=== PATIENT | female | born 1975 | race Caucasian/White ===

== ENCOUNTER 2021-05-23 17:33 | Emergency (ER) | payer BC, OTHER ==
[~2021-05-23] VITALS: Ht 157.5 cm; Wt 74.8 kg
--- NOTE | 2021-05-23 17:35 | NUR ---
Patient to ER bed 05 to gown for evaluation. Side rails up.
--- NOTE | 2021-05-23 17:40 | NUR ---
Pt to bed #5 coming from home ambulatory with steady gait. A&Ox4. Skin intact. Pt c/o right wrist pain. Pt states she fell while ice skating and landed on her right wrist. Pt rates pain 8/10 non-radiating. Swelling noted on right wrist. Did not hit head. No chest pain and no sob. Denies n/v. VSS. NKA. No known medical conditions. Bed in lowest position.
[2021-05-23 17:41] VITALS: BP_SYST 139
--- NOTE | 2021-05-23 17:45 | NUR ---
ER at bedside examining patient.
--- NOTE | 2021-05-23 18:21 | NUR ---
X-Ray being done at bedside.
[2021-05-23] MEDS ORDERED: HYDR-3917 PO (18:40)
[2021-05-23] MEDS ORDERED: IBUP-1969 PO (18:40)
[2021-05-23 19:00] VITALS: BP_SYST 124
[2021-05-23] MEDS ORDERED: IBUPROFEN 800 MG TABLET PO ONE (19:00)
[2021-05-23] MEDS ORDERED: MORPHINE 4 MG INJ. 4 MG/ML VIAL IM ONE (19:00)
[2021-05-23] MEDS ORDERED: HYDROcodone/ACETAMIN 5-325 MG TAB (NORCO/ VICODIN) PO ONE (19:00)
--- NOTE | 2021-05-23 19:01 | NUR ---
Patient given written and verbal discharge instructions and verbalizes understanding. ER MD discussed with patient the results and treatment provided. Patient in stable condition. ID arm band removed. Rx of [place] & Ibuprofen given. Patient educated on pain management and to follow up with PMD. Pain Scale . Opportunity for questions provided and answered. Medication side effect fact sheet provided.
== END 2021-05-23 19:01 | disposition home or self-care (01) ==
LOC: SED 17:33
DX: S52.501A Unspecified fracture of the lower end of right radius, initial encounter for closed fracture (principal); Z79.899 Other long term (current) drug therapy; V00.131A Fall from skateboard, initial encounter; Y93.51 Activity, roller skating (inline) and skateboarding; Y92.89 Other specified places as the place of occurrence of the external cause; Y99.8 Other external cause status
CPT/HCPCS: 99283